=== PATIENT | female | born 1930 | race Caucasian/White ===

== ENCOUNTER 2016-09-27 09:34 | Emergency (ER) | payer MEDICARE, OTHER ==
[~2016-09-27 09:34] MED LIST: ACTONEL35 MG; ADULT ASPIRIN81 MG; ARTHROTEC 751 TAB.EC; ASPIR 8181 MG PO; ATORVASTATIN CA40 MG PO; CALCIUM CITRAT1 EA15 PO; CALCIUM W/VITA; CALCIUM600 MG PO; COUMADIN2 M1 PO; COUMADIN2 MG; COUMADIN2 MG PO; COUMADIN3 MG; COUMADIN4 M1 PO; COUMADIN4 MG; COUMADIN4 MG PO; DICLOFENAC SODI75 MG PO; GLUCOPHAGE500 MG PO; LEVOTHROID88 MCG; LEVOTHROID88 MCG PO; LOSARTAN POTASS25 MG PO; LOVENOX80 MG/0.8; MISOPROSTOL200 MCG PO; NORCO 7.5-3251 EACH PO; SERTRALINE HCL25 M1 PO; TENORMIN25 MG; VITAMIN D400 UNI1 PO; ZOCOR80 MG
== END 2016-09-27 11:55 ==
LOC: EDMED 09:34
DX: K59.00 Constipation, unspecified (principal); E11.9 Type 2 diabetes mellitus without complications; I25.10 Atherosclerotic heart disease of native coronary artery without angina pectoris; Z79.01 Long term (current) use of anticoagulants